=== PATIENT | female | born 1930 | race Caucasian/White ===

== ENCOUNTER 2018-02-25 00:07 | Emergency (ER) | payer MEDICARE ==
[~2018-02-25] VITALS: Ht 160 cm; Wt 68.0 kg
--- NOTE | ~2018-02-25 | EKG ---
[place], [place] ELECTROCARDIOGRAM REPORT NAME: ИВАН PAUL UNIT #: [id number] ROOM: DOCTOR: EPIPHANY DRAFT REPORT BIRTHDATE: [birth year] [facility] Test Date: 2018-02-25 Test Time: 00:09:29 Pat Name: ИВАН PAUL Department: ER Room: 1 Gender: F Technical Services Rep: NILA : 1930 Requested By: ADRIENEN DEE Order Number: [id number] Reading MD: Jerome Pozo MD Measurements Intervals [place] Rate: 105 P: 39 AR: 221 QRS: -5 QRSD: 99 T: 44 QT: 334 QTc: 442 Interpretive Statements Sinus tachycardia Prolonged AR interval Anterior infarct, acute Lateral leads are also involved Electronically Signed On 02-26-2018 18:55:05 PDT by Jerome Pozo MD CM:EKGRPT:ELECTROCARDIOGRAM REPORT [id number] ADRIENNE MOODY DRAFT REPORT ADRIENNE DEE DO
[~2018-02-25 00:07] MED LIST: LANTUS100 U/ML SC; LOPRESSOR25 MG PO
[2018-02-25] MEDS ORDERED: IMDUR SA60 M1 PO (00:27)
[2018-02-25] MEDS ORDERED: COUMADIN2 M1 PO (00:27)
[2018-02-25] MEDS ORDERED: GLIPIZIDE5 MG PO (00:28)
[2018-02-25] MEDS ORDERED: METOPROLOL TART50 M1 PO (00:28)
[2018-02-25 00:32] LABS: BASO # 0.1 10*3/uL (0.0-0.1); BASO % 0.6 % (0.0-1.0); EOS # 0.5 10*3/uL (0.0-0.4); HEMATOCRIT 49.3 % (37.0-47.0); HEMOGLOBIN 15.7 g/dl (12.0-16.0); LYMPH # 4.9 10*3/uL (1.3-4.4); LYMPH % 31.4 % (27.0-41.0); MEAN CELL VOLUME 92.5 fl (81.0-99.0); MEAN CORPUSCULAR HGB 29.5 pg (27.0-31.0); MEAN CORPUSCULAR HGB CONC 31.8 g/dl (33.0-37.0); MEAN PLATELET VOLUME 11.1 fl (9.6-12.3); MONO # 0.9 10*3/uL (0.1-1.0); MONO % 5.7 % (3.0-9.0); NEUT # 9.1 10*3/uL (2.3-7.9); NEUT % 58.9 % (47.0-73.0); PLATELET COUNT AUTOMATED 260 10*3/uL (130-400); RED BLOOD COUNT 5.33 10*6/uL (4.10-5.10); WHITE BLOOD COUNT 15.5 10*3/uL (4.8-10.8)
[2018-02-25 00:42] LABS: ACT PARTIAL THROMBO TIME 25.5 SECONDS (20.8-31.5); INTERNATIONAL NORM RATIO 1.2 (2.0-3.5)
[2018-02-25 00:47] LABS: CREATININE 2.08 mg/dL (0.55-1.02); POTASSIUM 4.1 mmol/L (3.5-5.1); TOTAL PROTEIN 9.6 gm/dL (6.4-8.2)
[2018-02-25 00:52] LABS: TROPONIN I 0.762 ng/ml (<0.045)
== END 2018-02-25 01:29 | disposition short-term general hospital (02) ==
LOC: ED 00:07
PROVIDERS: Student in an Organized Health Care Education/Training Program
DX: I21.3 ST elevation (STEMI) myocardial infarction of unspecified site (principal); I25.2 Old myocardial infarction; Z95.1 Presence of aortocoronary bypass graft; Z95.5 Presence of coronary angioplasty implant and graft; I48.91 Unspecified atrial fibrillation; Z79.02 Long term (current) use of antithrombotics/antiplatelets; Z79.899 Other long term (current) drug therapy